=== PATIENT | male | born 1985 | race Caucasian/White ===

== ENCOUNTER 2016-10-07 16:23 | Emergency (ER) | payer MEDICARE, OTHER | END 2016-10-07 18:30 | disposition left against medical advice (07) | LOC: ER 16:23 | DX: Z53.21 Procedure and treatment not carried out due to patient leaving prior to being seen by health care provider (principal) | CPT/HCPCS: 99211 ==

== ENCOUNTER 2016-10-13 19:22 | Emergency (ER) | payer MEDICARE, OTHER | END 2016-10-13 20:40 | disposition left against medical advice (07) | LOC: ER 19:22 | DX: Z53.21 Procedure and treatment not carried out due to patient leaving prior to being seen by health care provider (principal) | CPT/HCPCS: 99211 ==